=== PATIENT | male | born 1995 | race Caucasian/White ===

== ENCOUNTER 2020-08-03 13:18 | Emergency (ER) | payer OTHER ==
[~2020-08-03] VITALS: Ht 177 cm; Wt 90.0 kg
[2020-08-03 13:20] VITALS: BP 159/86
[2020-08-03] MEDS ORDERED: LIDOCAINE 1% INJ 20 ML 20 ML VIAL ONE (13:21)
[2020-08-03] MEDS ORDERED: LIDOCAINE 1% INJ 20 ML 20 ML VIAL INJ ONE (13:30)
[2020-08-03] MEDS ORDERED: TETANUS & DIPHTHERIA TOX,ADULT 0.5 ML (TENIVAC) IM ONE (13:30)
--- NOTE | 2020-08-03 14:01 | ED Upper Extremity ---
General Chief Complaint: Laceration Stated Complaint: WC LT FINGER LAC Nursing Triage Note: DROPPED A PIECE OF HEAVY METAL ON HIS LEFT INDEX FINGER. SMALL 2 CM LACERATION Nursing Sepsis Screen: No Definite Risk History of Present Illness Date Seen by Provider: Aug 03, 2020 Time Seen by Provider: 13:55 Initial Comments 24-year-old male says he was at work dropped a piece of metal caused a superficial 1.5cm laceration to the distal ventral left index finger no other injury Allergies and Home Medications Allergies Coded Allergies: No Known Drug Allergies (Unverified , 08/03/20) Patient Home Medication List Home Medication List Reviewed: Yes Review of Systems Constitutional: no symptoms reported EENTM: no symptoms reported Respiratory: no symptoms reported Cardiovascular: no symptoms reported Gastrointestinal: no symptoms reported Genitourinary: no symptoms reported Musculoskeletal: other (see HPI) Skin: no symptoms reported Psychiatric/Neurological: No Symptoms Reported Past [id number] Hx Patient Social History Alcohol Use: Regular Use Alcohol Beverage of Choice: Beer Recreational Drug Use: No Smoking Status: Never a Smoker 2nd Hand Smoke Exposure: No Recent Foreign Travel: No Contact w/Someone Who Travel: No Recent Infectious Disease Expo: No Recent Hopitalizations: No Physical Abuse: No Sexual Abuse: No Mistreated: No Fear: No Immunizations Up To Date Tetanus Booster (TDap): Unknown Seasonal Allergies Seasonal Allergies: No Past Medical History Surgeries: No Respiratory: No Cardiac: No Neurological: No Genitourinary: No Gastrointestinal: No Musculoskeletal: No Endocrine: No HEENT: No Cancer: No Psychosocial: No Integumentary: No Blood Disorders: No Physical Exam Vital Signs Vital Signs - First Documented 08/03/20 13:20 Temp 36.3 Pulse 113 Resp 16 B/P (MAP) 159/86 (110) Pulse Ox 99 O2 Delivery Room Air Capillary Refill : Less Than 3 Seconds Height, Weight, BMI Height: '" Weight: lbs. oz. kg; 28.00 BMI Method: General Appearance: WD/WN, mild distress HEENT: PERRL/EOMI, pharynx normal Neck: supple Cardiovascular: regular rate, rhythm Respiratory: lungs clear Gastrointestinal: non tender (left hand and wrist normal there is as described a superficial 1 1/2 cm laceration ventral aspect distal left index finger there is no swelling no ecchymosis he has full range of motion and normal use of the finger), soft Procedures/Interventions Wound Location: Upper Extremities Other Wound Location Left index finger Wound Length (cm): 1.5 Wound's Depth, Shape: linear Wound Explored: clean Anesthesia: 1% Lidocaine Suture: Plain Suture Size: 4-0 Number of Sutures: 3 Progress/Results/Core Measures Results/Orders My Orders Orders - BRAVO BARRETT MD Lidocaine 1% Inj 20 Ml (Xylocaine 1% Inj (08/03/20 13:21) Lidocaine 1% Inj 20 Ml (Xylocaine 1% Inj (08/03/20 13:30) Tetanus/Diphtheria Inj (Adult) (Tenivac (08/03/20 13:30) Medications Given in ED Current Medications Medications Dose Ordered Sig/Aspen Route Start Time Stop Time Status Last Admin Dose Admin Lidocaine HCl 20 ml ONCE ONCE INJ 08/03/20 13:30 08/03/20 13:31 DC 08/03/20 13:35 20 ML Tetanus/ Diphtheria Toxoids 0.5 ml ONCE ONCE IM 08/03/20 13:30 08/03/20 13:33 DC 08/03/20 13:38 0.5 ML Vital Signs/I&O 08/03/20 13:20 Temp 36.3 Pulse 113 Resp 16 B/P (MAP) 159/86 (110) Pulse Ox 99 O2 Delivery Room Air Blood Pressure Mean: 110 Departure Impression Primary Impression: Laceration of finger of left hand Qualified Codes: S61.211A - Laceration without foreign body of left index finger without damage to nail, initial encounter Disposition: 01 HOME, SELF-CARE Condition: Improved Departure-Patient Inst. Referrals: NO,LOCAL PHYSICIAN (PCP/Family) Primary Care Physician Patient Instructions: Laceration Repair Add. Discharge Instructions: Stitches should be removed in 7-10 days BRAVO BARRETT MD Aug 03, 2020 14:00
[2020-08-03] MEDS ORDERED: HYDROcodone/APAP 5 MG/325 MG (LORTAB) TAB PO ONE (14:15)
== END 2020-08-03 14:08 | disposition home or self-care (01) ==
LOC: ER FS 13:20
DX: S61.211A Laceration without foreign body of left index finger without damage to nail, initial encounter (principal); Z23 Encounter for immunization; W20.8XXA Other cause of strike by thrown, projected or falling object, initial encounter; Y92.59 Other trade areas as the place of occurrence of the external cause; Y99.0 Civilian activity done for income or pay
CPT/HCPCS: 90714; 99282